=== PATIENT | female | born 1995 | race Caucasian/White ===

== ENCOUNTER 2017-11-18 15:22 | Emergency (ER) | payer BC ==
[~2017-11-18] VITALS: Ht 157.5 cm; Wt 52.2 kg
[2017-11-18 15:25] VITALS: TEMP 36.5; Ht 157.5 cm; Wt 52.2 kg
[2017-11-18 15:47] VITALS: O2SAT 98
--- NOTE | 2017-11-18 15:54 | EMERGENCY ROOM VISIT NOTE ---
History First contact with patient: 15:29 Chief Complaint: CHEST PAIN Stated Complaint: CHEST PAIN RAPID HEART BEAT Nursing Triage Summary: Pt states that she started to have sharp chest pain this morning after waking up. Pt states the pain lasted for 5-7min. Pt states that it felt like her heart was racing. Pt states that she had tingling feeling in hands bilat. Pt felt SOB but was breathing fast at the time. Pt states the pain was relieved by rolling from her side to her back. Pt currently states he pain is a 2 out of 10. Pt recently flew back from [place]. No history of DVT or PE. Pt does have a history of anxiety Lungs clear bilat thru bases History of Present Illness The patient is a 22 year old female who presents to the Emergency Room via private vehicle with complaints of "chest pain, rapid heartbeat". The patient states that earlier today she was laying in bed when she developed a sudden onset of rapid heartbeat, left anterior chest pain, she describes as burning/ sharp in nature as well as pain in the left arm. She notes it is not dull, and his motor chest pressure. There is associated shortness of breath, nausea, headache as well as diffuse body fatigue. She states that she feels weak. She also feels some numbness in the bilateral arms. She rates the current chest pains at 2/10. She states that she did fly from [place] a few weeks ago, but has no history of blood clots. She does smoke. There is pertinent past medical history. There is no family history of TX, hypertension, high cholesterol. The patient does have a personal history of anxiety. She notes that she has never felt like this before. Review of Systems A complete 10-point Review of Systems was discussed with the patient, with pertinent positives and negatives listed in the History of Present Illness. All remaining Review of Systems questions can be considered negative unless otherwise specified. Past Medical/Surgical History Anxiety Family History No pertinent Social History Smoking Status: Current Every Day Smoker Pt. is a [employer] student Current/Historical Medications No Active Prescriptions or Reported Meds Physical Exam Vital Signs Date Time Temp Pulse Resp B/P (MAP) Pulse Ox O2 Delivery O2 Flow Rate FiO2 11/18/17 19:02 77 18 119/70 98 11/18/17 17:44 74 16 107/71 97 Room Air 11/18/17 16:26 87 11/18/17 15:47 98 Room Air 11/18/17 15:25 36.5 87 20 136/86 99 Room Air Physical Exam VITAL SIGNS - Vital signs and nursing notes were reviewed. Stable. GENERAL - 22-year-old female appearing her stated age who is in no acute distress. Communicates well with provider and answers questions appropriately. SKIN - Without rashes. HEAD - NC/AT. EYES - Sclera anicteric. EARS - No deformities of external structures noted on gross examination bilaterally. NOSE - Midline and without cyanosis. No epistaxis or purulent drainage noted. MOUTH/OROPHARYNX - Without perioral cyanosis. LUNGS - Chest wall symmetric without accessory muscle use, intercostals retractions, or central cyanosis. Normal vesicular breath sounds CTA B/L. No wheezes, rales, or rhonchi appreciated. CARDIAC - RRR with S1/S2. No murmur, rubs, or gallops appreciated. ABDOMEN - Abdominal contour normal without pulsations or visible masses. BS normoactive all four quadrants. No tenderness, palpable masses, hepatosplenomegaly, or ascites noted. EXTREMITIES - no leg swelling, arms had intact sensation and strength. NEUROLOGIC - Cranial nerves II through XII grossly intact. PSYCH - A&O, and cooperates fully with examiner. Pt is very pleasant and interacts well with examiner. Medical Decision & Procedures ER Provider Diagnostic Interpretation: CHEST ONE VIEW PORTABLE HISTORY: 22 years-old Female chest pain acute atypical chest pain COMPARISON: None available TECHNIQUE: Portable AP view of the chest FINDINGS: Cardiomediastinal and hilar silhouettes are within normal limits. There is no pneumothorax, pleural effusion, focal airspace consolidation or overt pulmonary edema. There is an ovoid lucent bone lesion involving the proximal metadiaphyseal portion of the right humerus measuring up to 6.3 x 2.2 cm demonstrating a thin zone of transition with mild endosteal scalloping. No pathologic fracture identified. No definite internal matrix to the lesion identified. IMPRESSION: 1. No acute process of the chest. 2. 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 Dedicated right humeral radiographs recommended to further characterize. The above report was generated using voice recognition software. It may contain grammatical, syntax or spelling errors. Electronically signed by: Migue Bergeron M.D. 11/18/2017 4:24 PM Dictated Date/Time: 11/18/2017 4:22 PM Laboratory Results 11/18/17 15:55 Red Blood Count 4.64, Mean Corpuscular Volume 90.1, Mean Corpuscular Hemoglobin 31.7, Mean Corpuscular Hemoglobin Concent 35.2, Mean Platelet Volume 9.7, Neutrophils (%) (Auto) 65.9, Lymphocytes (%) (Auto) 24.3, Monocytes (%) (Auto) 5.3, Eosinophils (%) (Auto) 3.8, Basophils (%) (Auto) 0.5, Neutrophils # (Auto) 6.36, Lymphocytes # (Auto) 2.35, Monocytes # (Auto) 0.51, Eosinophils # (Auto) 0.37, Basophils # (Auto) 0.05 11/18/17 15:55 Test 11/18/17 15:55 11/18/17 17:58 White Blood Count 9.66 K/uL (4.8-10.8) Red Blood Count 4.64 M/uL (4.2-5.4) Hemoglobin 14.7 g/dL (12.0-16.0) Hematocrit 41.8 % (37-47) Mean Corpuscular Volume 90.1 fL (80-100) Mean Corpuscular Hemoglobin 31.7 pg (25-34) Mean Corpuscular Hemoglobin Concent 35.2 g/dl (32-36) Platelet Count 388 K/uL (130-400) Mean Platelet Volume 9.7 fL (7.4-10.4) Neutrophils (%) (Auto) 65.9 % Lymphocytes (%) (Auto) 24.3 % Monocytes (%) (Auto) 5.3 % Eosinophils (%) (Auto) 3.8 % Basophils (%) (Auto) 0.5 % Neutrophils # (Auto) 6.36 K/uL (1.4-6.5) Lymphocytes # (Auto) 2.35 K/uL (1.2-3.4) Monocytes # (Auto) 0.51 K/uL (0.11-0.59) Eosinophils # (Auto) 0.37 K/uL (0-0.5) Basophils # (Auto) 0.05 K/uL (0-0.2) RDW Standard Deviation 44.1 fL (36.4-46.3) RDW Coefficient of Variation 13.4 % (11.5-14.5) Immature Granulocyte % (Auto) 0.2 % Immature Granulocyte # (Auto) 0.02 K/uL (0.00-0.02) Prothrombin Time 10.6 SECONDS (9.0-12.0) Prothromb Time International Ratio 1.0 (0.9-1.1) Activated Partial Thromboplast Time 27.6 SECONDS (21.0-31.0) Partial Thromboplastin Ratio 1.1 D-Dimer < 190 ug/L FEU (0-500) Anion Gap 8.0 mmol/L (3-11) Est Creatinine Clear Calc Drug Dose 106.0 ml/min Estimated GFR () 146.7 Estimated GFR (Non- 126.5 BUN/Creatinine Ratio 18.3 (10-20) Calcium Level 9.5 mg/dl (8.5-10.1) Magnesium Level 2.4 mg/dl (1.8-2.4) Total Bilirubin 0.4 mg/dl (0.2-1) Aspartate Amino Transf (AST/SGOT) 15 U/L (15-37) Alanine Aminotransferase (ALT/SGPT) 17 U/L (12-78) Alkaline Phosphatase 66 U/L (45-117) Total Creatine Kinase 71 U/L (26-192) Creatine Kinase MB < 0.5 ng/ml (0.5-3.6) Creatine Kinase MB Ratio (0-3.0) Total Protein 7.8 gm/dl (6.4-8.2) Albumin 4.4 gm/dl (3.4-5.0) Globulin 3.4 gm/dl (2.5-4.0) Albumin/Globulin Ratio 1.3 (0.9-2) Thyroid Stimulating Hormone (TSH) 0.942 uIu/ml (0.300-4.500) Troponin I < 0.015 ng/ml (0-0.045) Medical Decision Patient was seen and evaluated as above. She presents to us today with chest pain, stabbing sensation in the chest, as well as generalized weakness. She is nontoxic on exam. She converses well. Her vital signs are stable. She is afebrile. Heart rate normal at 87, with O2 sat 99. Bedside EKG was performed and per my interpretation reveals normal sinus rhythm, with sinus arrhythmia and nonspecific T-wave abnormality. This was then repeated 2 hours later to reveal normal sinus rhythm, with sinus arrhythmia again T-wave inversion was noted in leads 3, aVF, V3, V2, V1. Troponin negative 2. Chest x-ray normal except that there is a bone cyst noted on the proximal right humerus. 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 I do recommend that she follows in the near future for reevaluation. She declines dedicated humerus views here. In regard to the chest pain, she declined any pain medication. It is not reducible on exam however her d-dimer is normal and troponin is normal 2. It is not exertional. I do believe that she is stable for outpatient management for potential follow-up with [facility], with potential referral to cardiology given the T-wave inversions which could be normal variant however with her chest pain to believe that it would be warranted for cardiology follow- up. Patient denied chance of . Her CBC is unremarkable. Patient's coags normal. Metabolic panel reveals no evidence of kidney or liver failure. Potassium low at 3.3. TSH normal. She was educated upon management, educated upon worrisome symptoms in which to return, had questions about discharge, and was discharged home in good condition. I did enlist the help of our casey saw operator to help establish a follow-up appointment with the patient for [facility].. She will need to follow up with [facility] secondary to the ER not being able to refer to cardiology. The patient does note that she feels anxious, however with her anxiety has never felt chest pain. Case was discussed with the attending physician. In evaluation treatment this patient following differential diagnoses were entertained: TX, PE, costochondritis, reflux, anxiety, among others. Impression Primary Impression: Chest wall pain Additional Impressions: Hypokalemia Bone cyst Departure Information Dispostion Home / Self-Care Condition GOOD Prescriptions No Active Prescriptions or Reported Meds Referrals No Doctor, Assigned (PCP) Rosalino Singh M.D. Patient Instructions Hypokalemia Sd, My [facility] Additional Instructions You were seen in the emergency department for chest pain. Your EKG does reveal T-wave inversions, which I recommend follow-up with for potential referral to cardiology. Please call [facility] to schedule follow-up sooner as possible. Please call here at [phone] if difficulties. Your heart chemical, which is troponin, was normal 2 here. Your potassium was found beside below. Please refer to the attached sheet regarding foods high in potassium. I do recommend following up for the cyst in the right arm as we discussed. I recommend following up with orthopedics. Dr. Singh is listed as an individual to contact regarding this. I do recommend rest and stay well hydrated. Please return with any new/concerning symptoms. CHEST ONE VIEW PORTABLE HISTORY: 22 years-old Female chest pain acute atypical chest pain COMPARISON: None available TECHNIQUE: Portable AP view of the chest FINDINGS: Cardiomediastinal and hilar silhouettes are within normal limits. There is no pneumothorax, pleural effusion, focal airspace consolidation or overt pulmonary edema. There is an ovoid lucent bone lesion involving the proximal metadiaphyseal portion of the right humerus measuring up to 6.3 x 2.2 cm demonstrating a thin zone of transition with mild endosteal scalloping. No pathologic fracture identified. No definite internal matrix to the lesion identified. IMPRESSION: 1. No acute process of the chest. 2. 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 Dedicated right humeral radiographs recommended to further characterize. Problem Qualifiers
[2017-11-18 16:13] LABS: BASO % 0.5 %; BASO ABS # 0.05 K/uL (0-0.2); EOS % 3.8 %; EOS ABS # 0.37 K/uL (0-0.5); HEMATOCRIT 41.8 % (37-47); HEMOGLOBIN 14.7 g/dL (12.0-16.0); IG# 0.02 K/uL (0.00-0.02); LYMPH % 24.3 %; LYMPH ABS # 2.35 K/uL (1.2-3.4); MEAN CELL VOLUME 90.1 fL (80-100); MEAN CORPUSCULAR HEMOGLOBIN 31.7 pg (25-34); MEAN CORPUSCULAR HGB CONC 35.2 g/dl (32-36); MEAN PLATELET VOLUME 9.7 fL (7.4-10.4); MONO % 5.3 %; MONO ABS # 0.51 K/uL (0.11-0.59); NEUT % 65.9 %; NEUT ABS # 6.36 K/uL (1.4-6.5); PLATELET COUNT 388 K/uL (130-400); RED CELL DISTRIBUTION WIDTH CV 13.4 % (11.5-14.5); RED CELL DISTRIBUTION WIDTH SD 44.1 fL (36.4-46.3); WHITE BLOOD COUNT 9.66 K/uL (4.8-10.8)
--- NOTE | 2017-11-18 16:26 | DIAGNOSTIC IMAGING REPORT ---
CHEST ONE VIEW PORTABLE HISTORY: 22 years-old Female chest pain acute atypical chest pain COMPARISON: None available TECHNIQUE: Portable AP view of the chest FINDINGS: Cardiomediastinal and hilar silhouettes are within normal limits. There is no pneumothorax, pleural effusion, focal airspace consolidation or overt pulmonary edema. There is an ovoid lucent bone lesion involving the proximal metadiaphyseal portion of the right humerus measuring up to 6.3 x 2.2 cm demonstrating a thin zone of transition with mild endosteal scalloping. No pathologic fracture identified. No definite internal matrix to the lesion identified. IMPRESSION: 1. No acute process of the chest. 2. 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 Dedicated right humeral radiographs recommended to further characterize. The above report was generated using voice recognition software. It may contain grammatical, syntax or spelling errors. Electronically signed by: Migue Bergeron M.D. 11/18/2017 4:24 PM Dictated Date/Time: 11/18/2017 4:22 PM
[2017-11-18 16:32] LABS: PTT PATIENT 27.6 SECONDS (21.0-31.0)
[2017-11-18 16:38] LABS: ALBUMIN 4.4 gm/dl (3.4-5.0); ALT/SGPT 17 U/L (12-78); BLOOD UREA NITROGEN 12 mg/dl (7-18); CALCIUM 9.5 mg/dl (8.5-10.1); CARBON DIOXIDE 26 mmol/L (21-32); CREATININE 0.67 mg/dl (0.60-1.20); GLUCOSE 84 mg/dl (70-99); POTASSIUM 3.3 mmol/L (3.5-5.1); SODIUM 138 mmol/L (136-145)
[2017-11-18 16:48] LABS: ALKALINE PHOSPHATASE 66 U/L (45-117); AST/SGOT 15 U/L (15-37); CKMB < 0.5 ng/ml (0.5-3.6); TOTAL PROTEIN 7.8 gm/dl (6.4-8.2)
[2017-11-18 19:02] VITALS: BP 119/70; PULSE 77; O2SAT 98
== END 2017-11-18 19:04 | disposition home or self-care (01) ==
LOC: C.EDB 15:25 → C.EDC 19:04
DX: R07.89 Other chest pain (principal); E87.6 Hypokalemia; M85.60 Other cyst of bone, unspecified site; F17.200 Nicotine dependence, unspecified, uncomplicated